=== PATIENT | female | born 1965 | race Two or more races ===

== ENCOUNTER → 2018-08-07 | Outpatient (CLI) | payer BC | END | disposition home or self-care (01) | LOC: LAB 10:14 | PROVIDERS: ATTEND Internal Medicine | DX: J20.9 Acute bronchitis, unspecified (principal); R73.03 Prediabetes; E78.5 Hyperlipidemia, unspecified | CPT/HCPCS: 80061; 83036; 85025 ==

== ENCOUNTER → 2018-12-16 | Outpatient (CLI) | payer BC | END | disposition home or self-care (01) | LOC: EEVIPCON 10:07 → LAB 10:07 | PROVIDERS: ATTEND Internal Medicine | DX: E78.5 Hyperlipidemia, unspecified (principal); R73.03 Prediabetes | CPT/HCPCS: 80053; 80061; 83036; 85025 ==